=== PATIENT | male | born 1970 | race Caucasian/White ===

== ENCOUNTER → 2018-12-20 | Outpatient (CLI) | payer BC ==
[~2018-12-20] MED LIST: NF-CIPDEC OT
== END ==
LOC: WOUNDCARE 08:09
PROVIDERS: ATTEND Nurse Practitioner
DX: I96 Gangrene, not elsewhere classified (principal); S86.921A Laceration of unspecified muscle(s) and tendon(s) at lower leg level, right leg, initial encounter
CPT/HCPCS: 99204

== ENCOUNTER → 2018-12-27 | Outpatient (CLI) | payer BC | LOC: WOUNDCARE 09:15 | PROVIDERS: ATTEND Nurse Practitioner | DX: S86.921A Laceration of unspecified muscle(s) and tendon(s) at lower leg level, right leg, initial encounter (principal); I96 Gangrene, not elsewhere classified | CPT/HCPCS: 11042 ==

== ENCOUNTER → 2019-01-03 | Outpatient (CLI) | payer BC | LOC: WOUNDCARE 08:54 | PROVIDERS: ATTEND Nurse Practitioner | DX: S86.921A Laceration of unspecified muscle(s) and tendon(s) at lower leg level, right leg, initial encounter (principal); I96 Gangrene, not elsewhere classified | CPT/HCPCS: 11042; 87070; 87075; 87205 ==

== ENCOUNTER → 2019-01-10 | Outpatient (CLI) | payer BC | LOC: WOUNDCARE 08:54 | PROVIDERS: ATTEND Nurse Practitioner | DX: S96.921A Laceration of unspecified muscle and tendon at ankle and foot level, right foot, initial encounter (principal); I96 Gangrene, not elsewhere classified | CPT/HCPCS: 11042 ==

== ENCOUNTER → 2019-01-17 | Outpatient (CLI) | payer BC | LOC: WOUNDCARE 08:59 | PROVIDERS: ATTEND Nurse Practitioner | DX: I96 Gangrene, not elsewhere classified (principal); S86.921A Laceration of unspecified muscle(s) and tendon(s) at lower leg level, right leg, initial encounter | CPT/HCPCS: 11042 ==

== ENCOUNTER → 2019-01-24 | Outpatient (CLI) | payer BC | LOC: WOUNDCARE 08:56 | PROVIDERS: ATTEND Nurse Practitioner | DX: S86.901A Unspecified injury of unspecified muscle(s) and tendon(s) at lower leg level, right leg, initial encounter (principal); I96 Gangrene, not elsewhere classified | CPT/HCPCS: 11042 ==

== ENCOUNTER → 2019-01-31 | Outpatient (CLI) | payer BC | LOC: WOUNDCARE 08:53 | PROVIDERS: ATTEND Nurse Practitioner | DX: S86.921A Laceration of unspecified muscle(s) and tendon(s) at lower leg level, right leg, initial encounter (principal) | CPT/HCPCS: 99212 ==